=== PATIENT | female | born 1965 | race Caucasian/White ===

== ENCOUNTER → 2023-12-29 15:56 | Outpatient (REF) | payer BC, SELFPAY | LOC: RAD 15:56 | PROVIDERS: ATTENDING PHYSICIAN Physician Assistant Medical | DX: M25.551 Pain in right hip (principal) | CPT/HCPCS: 72110; 73502 ==

== ENCOUNTER → 2024-07-23 10:58 | Outpatient (REF) | payer BC, SELFPAY | LOC: WDC 10:58 | PROVIDERS: ATTENDING PHYSICIAN Obstetrics & Gynecology; FAMILY PHYSICIAN Physician Assistant Medical | DX: Z12.31 Encounter for screening mammogram for malignant neoplasm of breast (principal) | CPT/HCPCS: 77063; 77067 ==

== ENCOUNTER 2024-11-27 11:23 | Emergency (ER) | payer BC, SELFPAY ==
[2024-11-27 11:27] VITALS: BP 156/94
[2024-11-27 12:09] VITALS: BP 149/93
[2024-11-27 12:34] VITALS: BP 161/84
[2024-11-27 12:44] LABS: % Basophils 0.8 % (0-2); % Eosinophils 1.8 % (0-6); % Immature Granulocytes 0.7 % (0-0.5); % Monocytes 8.6 % (1.7-9.3); % Neutrophils 63.1 % (42.2-75.2); Absolute Basophils 0.1 10^3/uL (0-0.2); Absolute Eosinophils 0.2 10^3/uL (0-0.7); Absolute Immature Granulocytes 0.1 10^3/uL (0-0.05); Absolute Lymphocytes 2.1 10^3/uL (1.2-3.4); Absolute Monocytes 0.7 10^3/uL (0.1-0.6); Absolute Neutrophils 5.3 10^3/uL (1.4-6.5); Hematocrit 44.5 % (37.0-47.0); Hemoglobin 14.9 g/dL (12.0-16.0); Mean Corp Hgb Conc. 33.5 g/dL (33.0-37.0); Mean Corpuscular Hgb 28.7 pg (27.0-31.0); Mean Corpuscular Volume 85.7 fL (81.0-99.0); Mean Platelet Volume 10.1 fL (7.4-10.4); Nucleated Red Blood Cells % 0 %; Platelet Count 352 10^3/uL (130-400); Red Blood Cell Count 5.19 10^6/uL (4.20-5.40); Red Cell Dist. Width 11.9 % (11.5-14.5); White Blood Cell Count 8.3 10^3/uL (4.8-10.8)
[2024-11-27 12:56] LABS: ALT (SGPT) 35 U/L (0-35); AST (SGOT) 29 U/L (14-36); Albumin 4.7 g/dl (3.5-5.0); Alkaline Phosphatase 76 U/L (38-126); Blood Urea Nitrogen 25 mg/dl (7-17); Calcium 10.3 mg/dl (8.4-10.2); Carbon Dioxide 29 mmol/L (22-30); Chloride 109 mmol/L (98-107); Creatine Phosphokinase 132 U/L (30-135); Glucose 100 mg/dl (70-99); Potassium 4.1 mmol/L (3.5-5.1); Sodium 142 mmol/L (135-145); Total Bilirubin 0.4 mg/dl (0.2-1.3); Total Protein 7.7 g/dl (6.3-8.2); eGFR > 60.00
[2024-11-27 13:00] VITALS: BP 148/83
--- NOTE | 2024-11-27 16:01 | DOWNTIME ---
There was a [employer] Downtime on 11/27/2024 from 1230 to 11/27/2024 at 1550. Downtime documentation of patient's care, including medication administrations, has been reconciled in the electronic record per guidelines. Refer to the
patient's paper chart under the miscellaneous tab to see printed paper medication records and downtime forms.
[2024-11-27 16:18] LABS: Troponin I < 0.012 ng/ml
--- NOTE | 2024-11-27 16:47 | ED.GENMED ---
History of Present Illness
General
Chief Complaint: Abnormal Lab Value
Source: patient
Exam Limitations: none
Time Seen by Provider: 11/27/24 12:18
History of Present Illness
History of Present Illness:
59yoF with a history of hyperlipidemia presenting for evaluation of an abnormal outpatient lab. Patient had lab work yesterday and was called by her PCP today due to an elevated CK�MB level. Her CK�MB was 6.9 (upper limit of normal is 5.3).
Patient believes this was checked because she was complaining of sciatica and muscle pain recently and was unsure if she was having a side effect to her fenofibrate. Patient denies any chest pain, shortness of breath, dizziness, syncope. She walks
about 2 miles daily and she has never had any chest pain or dyspnea with exertion.
Past History
Past History
ED Past Medical History: None
ED Past Surgical History: None
Social History
Tobacco: Non-smoker
Alcohol: None
Drug: None
Living: with family
Phy Exam
General Physical Exam
General Presentation: well appearing and no apparent distress
General Skin: warm and dry
General Habitus: normal
General Mental: alert
ENT Exam
ENT Exam: normocephalic
Cardiovascular Exam
Cardiovascular Exam: regular rate/rhythm, no edema and no murmur
Pulmonary Exam
Pulmonary Exam: lungs clear, no respiratory distress, no rales, no crackles, no rhonchi and no wheezing
Neurological Exam
Neurological Exam: alert
Cori Coma Scale
Eye Opening: Spontaneous
Verbal Response: Oriented
Motor Response: Obeys Commands
GCS Total Score: 15
Skin Exam
Skin Exam: normal color and warm/dry
Psychiatric Exam
Psychiatric Exam: normal mood/affect
Course
Orders/Labs/Results
Orders:
Orders
11/27/24 12:27
Electrocardiogram (*1) Urgent
Reason for Study: Other
Other Reason for Exam: elevated CK
EKG- Treatment ONCE
11/27/24 12:30
Complete Blood Count/With Diff Urgent
Comprehensive Metabolic Panel Urgent
Total CK [Creatine Phosphokinase] Urgent
Troponin I Urgent
Abnormal Lab Results
11/27/24
12:30
Abs Immat Gran (auto) 0.1 H 10^3/uL
(0-0.05)
Absolute Monos (auto) 0.7 H 10^3/uL
(0.1-0.6)
Immature Gran % 0.7 H %
(0-0.5)
Chloride 109 H mmol/L
(98-107)
BUN 25 H mg/dl
(7-17)
Glucose 100 H mg/dl
(70-99)
Calcium 10.3 H mg/dl
(8.4-10.2)
11/27/24 12:30
11/27/24 12:30
Vital Signs
Initial and Last Documented VS:
Initial Vital Signs
Temp Pulse Resp BP Pulse Ox
98.2 F 69 16 156/94 100
11/27/24 11:27 11/27/24 11:27 11/27/24 11:27 11/27/24 11:27 11/27/24 11:27
Last Documented Vital Signs
Temp Pulse Resp BP Pulse Ox
98.2 F 63 23 148/83 95
11/27/24 11:27 11/27/24 13:00 11/27/24 13:00 11/27/24 13:00 11/27/24 13:00
MDM/Problems Addressed
Differential Diagnosis Includes:
59yoF here for an elevated CK-MB on routine outpatient labs yesterday. Denies any cardiac symptoms. Specifically, she denies any chest pain or shortness of breath. She is mildly hypertensive with otherwise stable vital signs. She is well-appearing
in no acute distress. Differential diagnosis includes but is not limited to: Lab error, rhabdomyolysis, doubt ACS
Initial ED plan: Check cardiac labs, CK, and EKG.
*EKG
Interpreted by ED Provider?: Yes
EKG Intrepretation Date: 11/27/24
Heart Rate: 60
Rate: normal
Rhythm: sinus
[place]: normal axis
Interval: normal interval
QRS Pattern: normal QRS
Ischemia: no ischemia
*Critical Care Note
Total Time (30-74mins, 75-104mins- exclusive of procedures): Not Applicable
Update Note
Update Note:
Total CK within normal limits. Creatinine 0.8. EKG shows normal sinus rhythm without ischemic changes and troponin is <0.012. No indication for hospitalization. She does have a strong family history of heart disease and states that her father
had a CABG at her age. Recommended outpatient f/u with cardiology. ED return precautions reviewed. Patient in agreement with plan and was discharged in stable condition.
Patient was seen during [facility] downtime and was given hand written discharge papers.
ED Attending Note
-
Portions of this chart may have been created with voice recognition software.� Occasional wrong word or��sound alike� substitutions may have occurred due to the inherent limitations of voice recognition software.
Discharge Plan
Departure
Patient Disposition: Home (Routine Discharge)
Date of Disposition: 11/27/24
Time of Disposition: 15:58
Patient with high blood pressure during this ER visit?: Yes
Discharge Problem:
Abnormal CK
Prescriptions:
No Action
No Current Medications
0
Interventions
Interventions:
*Risk Screen - Suicide Last Done: 11/27/24 11:27
*General Assessment Last Done: 11/27/24 11:27
*Neglect/Abuse Screening Last Done: 11/27/24 11:27
*ED- Fall Risk Assessment Last Done: 11/27/24 13:30
*ED COVID-19 Vaccine History Last Done: 11/27/24 13:30
*Nursing Disposition Last Done: 11/27/24 16:12
Discharge Date and Time
Discharge Date/Time: 11/27/24 15:45
Print Language: ANGUILLAN
== END 2024-11-27 15:45 | disposition home or self-care (01) ==
LOC: EMR 11:23
PROVIDERS: Physician Assistant; EMERGENCY PHYSICIAN Emergency Medicine; FAMILY PHYSICIAN Physician Assistant Medical
DX: R74.8 Abnormal levels of other serum enzymes (principal); E78.5 Hyperlipidemia, unspecified
CPT/HCPCS: 99284; 80053; 82550; 84484; 85025; 93005